=== PATIENT | male | born 1970 | race Caucasian/White ===

== ENCOUNTER 2024-12-16 19:31 | Emergency (ER) | payer OTHER, SELFPAY ==
--- NOTE | ~2024-12-16 | US_ITS ---
CLINICAL HISTORY: pain, calf TTP Left lower extremity venous duplex ultrasound Study was performed using color and spectral waveform analysis. Comparison: None Findings: Visualized deep veins are fully compressible with normal flow and augmentation. No popliteal cyst. No significant adenopathy. Impression: Left lower extremity venous duplex ultrasound negative for DVT This document has been electronically signed by: Maico Parra MD on 12/16/2024 21:21:15
--- NOTE | ~2024-12-16 | XR_ITS ---
CLINICAL HISTORY: pain, recent injury Left knee four views Comparison: None provided Findings: No acute fracture or dislocation noted. No significant joint effusion identified. No soft tissue foreign body. Impression: No acute bony abnormality This document has been electronically signed by: Maico Parra MD on 12/16/2024 21:02:14
[2024-12-16 19:57] VITALS: BP 138/87; PULSE 90; RESP 18; TEMP 36.3; O2SAT 96; BMI 32.2
--- NOTE | 2024-12-16 19:57 | ED_ITS ---
HPI - General Adult General Chief complaint: Extremity Problem Stated complaint: L leg swelling, knee pain Time Seen by Provider: 12/16/24 21:52 Source: patient Limitations: language barrier History of Present Illness ED Provider: Lidia Veloz PA-C Related Data Previous Rx's ?Medication ?Instructions ?Recorded meloxicam 15 mg tablet 15 mg PO DAILY PRN pain #7 t abs 12/16/24 Allergies Allergy/AdvReac Type Severity Reaction Status Date / Time No Known Allergies Allergy Verified 12/16/24 20:00 PMF Social History Social History Advance Directives: No Advance Directives Information Provided: No Physical Exam ED Vital Signs: Vital Signs - 24 hr 12/16/24 19:57 Temperature 97.3 F Pulse Rate 90 Respiratory Rate 18 Blood Pressure 138/87 Pulse Oximetry 96 Oxygen Delivery Method Room Air BMI result Body Mass Index 32.2 Course Course Course Narrative: This is an RME performed by Mirtha Salas CNP: Additional HPI, ROS, PE not included below will be deferred to primary provider. Patient is a 54-year-old male who presents emergency department for evaluation. For the past 2 months he has been experiencing left leg pain primarily at the knee and posterior to the knee. Over the past 2 weeks pain has extended throughout the entirety of the leg but remains most painful the knee. Reports 2 months ago he had an injury to the knee, had stepped a certain way and felt movement to the side, was seen at [facility] initially, no x-rays performed, prescribed diclofenac Exam: 2+ DP PT pulse, tenderness upon palpation. Compartments soft. Neurovascularly intact distally. Plan: Venous duplex US, XR knee Medical Decision Making Medical Decision Making [facility] Narrative: I have independently reviewed the following tests: X-ray left knee:Findings: No acute fracture or dislocation noted. No significant joint effusion identified. No soft tissue foreign body. Impression: No acute bony abnormality DVT study left lower extremity:Left lower extremity venous duplex ultrasound Study was performed using color and spectral waveform analysis. Comparison: None Findings: Visualized deep veins are fully compressible with normal flow and augmentation. No popliteal cyst. No significant adenopathy. Impression: Left lower extremity venous duplex ultrasound negative for DVT Lab Data 12/16/24 20:28 12/16/24 20:28 Labs: Lab Results 12/16/24 Range/Units 20:28 WBC 9.1 (4.8-10.8) X10*3/uL RBC 5.13 (4.60-5.80) X10*6/uL Hgb 16.5 (14.0-18.0) g/dl Hct 45.6 (42.0-52.0) % MCV 88.9 (80.0-98.0) fL MCH 32.2 (27.0-33.0) pg MCHC 36.2 H (31.0-36.0) g/dl RDW 12.2 (11.0-16.0) % Plt Count 275 (160-400) X10*3/uL MPV 9.3 L (9.4-12.4) fL Immature Gran % (Auto) 0.3 (0.0-0.4) % Neut % (Auto) 56.5 (45-73) % Lymph % (Auto) 30.5 (20-40) % Rabun % (Auto) 9.8 (2-11) % Eos % (Auto) 2.6 (0-4) % Baso % (Auto) 0.3 (0-2) % Lymph # (Auto) 2.8 (1.2-4.9) X10*3/uL Rabun # (Auto) 0.9 (0.1-1.2) X10*3/uL Eos # (Auto) 0.2 (0.0-0.4) X10*3/uL Baso # (Auto) 0.0 (0.0-0.2) X10*3/uL Abs Immat Gran (auto) 0.03 (0.00-0.03) X10*3/uL Absolute Neuts (auto) 5.1 (2.0-8.3) x10*3/uL Absolute Nucleated RBC 0.000 (0.0-0.012) X10*3/uL Nucleated RBC % (auto) 0.0 (0.0-0.2) /100WBC PT 11.3 (10.9-12.4) SEC INR 1.0 (0.9-1.1) Sodium 141 (135-145) mmol/L Potassium 3.9 (3.3-5.1) mmol/L Chloride 107 (96-108) mmol/L Carbon Dioxide 23 (22-29) mmol/L Anion Gap 15 (12-20) BUN 11 (9-16) mg/dL Creatinine 1.04 (0.5-1.4) mg/dL Estim Creat Clear Calc 90.1 Estimated GFR > 60 Random Glucose 121 H (60-115) mg/dL Calcium 8.8 (8.4-10.2) mg/dL Total Bilirubin 0.2 (0.0-1.0) mg/dL AST 36 (5-37) U/L ALT 80 H (0-40) U/L Alkaline Phosphatase 72 (39-117) U/L Total Creatine Kinase 83 (38-174) U/L Total Protein 7.2 (6.5-8.0) g/dL Albumin 4.2 (3.5-5.0) g/dL Discharge Plan Discharge Clinical Impression: Strain of left knee Patient Disposition: Home, Self-Care Instructions: Knee Sprain (ED), Crutch Instructions (ED), P.R.I.C.E. Treatment (ED) Additional Instructions: The x-ray of the left knee was negative for fracture or dislocation. The DVT study was negative for clot. You likely have a ligamentous injury, you require orthopedic consult, and a likely MRI. I am providing you with a contact, you can call tomorrow to schedule an appointment. Keep the knee immobilizer in place while ambulating, use the crutches as well. Take the meloxicam as directed as an anti-inflammatory, this will help your pain. Prescriptions: New meloxicam 15 mg tablet 15 mg PO DAILY PRN (Reason: pain) Qty: 7 0RF Referrals: Momo Lee MD [Physician, Orthopedics] Referral Note: left knee sprain, pain/reduced mobility for months Print Language: German
[2024-12-16 20:31] LABS: MANUAL DIFF FLAG NO
[2024-12-16 20:33] LABS: Hematocrit 45.6 % (42.0-52.0); Hemoglobin 16.5 g/dl (14.0-18.0); Imm Gran Abs Auto 0.03 X10*3/uL (0.00-0.03); Imm Gran Pct Auto 0.3 % (0.0-0.4); Lymphocytes Absolute Auto 2.8 X10*3/uL (1.2-4.9); Mean Corpuscular HGB Conc 36.2 g/dl (31.0-36.0); Mean Corpuscular Hemoglobin 32.2 pg (27.0-33.0); Mean Corpuscular Volume 88.9 fL (80.0-98.0); NRBC Abs Auto 0.000 X10*3/uL (0.0-0.012); NRBC Pct Auto 0.0 /100WBC (0.0-0.2); Platelet Count 275 X10*3/uL (160-400); Red Blood Count 5.13 X10*6/uL (4.60-5.80); White Blood Count 9.1 X10*3/uL (4.8-10.8)
[2024-12-16 20:40] LABS: INTERNATIONAL NORM RATIO 1.0 (0.9-1.1); Prothrombin Time 11.3 SEC (10.9-12.4)
[2024-12-16 20:48] LABS: Albumin Level 4.2 g/dL (3.5-5.0); Alkaline Phosphatase 72 U/L (39-117); Anion Gap 15 (12-20); Aspartate Amino Transferase 36 U/L (5-37); Blood Urea Nitrogen 11 mg/dL (9-16); Calcium 8.8 mg/dL (8.4-10.2); Carbon Dioxide 23 mmol/L (22-29); Chloride 107 mmol/L (96-108); Creatinine Clr Calc Pharmacy 90.1; Estimated Glomerular Filt Rate > 60; Potassium 3.9 mmol/L (3.3-5.1); Sodium 141 mmol/L (135-145); Total Protein 7.2 g/dL (6.5-8.0)
[2024-12-16 21:02] LABS: Alanine Aminotransferase 80 U/L (0-40)
--- OUTSIDE RECORDS SUMMARY | 2024-12-16 21:09 | XMS_ITS | Clinical Summary ---
Author Organization [facility] [address] [place] [address] [place] [address] Phone Care Team Providers Care Brickmason Helper Name Role Phone Abelardo Mckeon MD Primary Care Provider Allergies No known active allergies Medications diclofenac (Cataflam) 50 mg tablet Take 1 tablet (50 mg total) by mouth 2 (two) times a day for 10 days. 20 each 09/22/2024 Active Encounters Date Type Department Care Team Description 09/22/2024 2:00 PM EDT Office Visit [facility] [address] [phone] Kristine Morales NP Acute pain of left knee (Primary Dx) 09/22/2024 Telephone Adult Medicine [address] [phone] Abelardo Mckeon MD Knee Pain from Last 3 Months Social History Tobacco Use Types Packs/Day Years Used Date Smoking Tobacco: Never Assessed Sex and Gender Information Value Date Recorded Sex Assigned at Not on file Legal Sex Male 3:02 PM EST Gender Identity Not on file Sexual Orientation Not on file Last Filed Vital Signs Vital Sign Reading Time Taken Comments Blood Pressure 127/86 09/22/2024 2:04 PM EDT Pulse 88 09/22/2024 2:04 PM EDT Temperature 36.2 C (97.2 F) 09/22/2024 2:04 PM EDT Respiratory Rate - - Oxygen Saturation 97% 09/22/2024 2:04 PM EDT Inhaled Oxygen Concentration - - Weight - - Height - - Body Mass Index - - Plan of Treatment Upcoming Encounters Date Type Department Care Team (Late st Contact Info) Description 02/13/2025 9:00 AM EDT Office Visit Adult Medicine [facility] [address] [place] [phone] Abelardo Mckeon MD [address] [place] [address] Health Maintenance Due Date Last Done Comments DTaP,Tdap,and Td Vaccines (1 - Tdap) 1988 Hepatitis B Vaccines (1 of 3 - 19+ 3-dose series) 1988 Pneumococcal Vaccine: 50+ Ye ars (1 of 1 - PCV) 2019 Zoster Vaccines (1 of 2) 2019 COVID-19 Vaccine ( - 2023-2 5 season) 2024 Depression Screening 05/21/2024 Cholesterol Screening (Lipid Panel) 07/17/2024 Colorectal Cancer Screening: Colonoscopy 07/17/2024 HIV Screening 07/17/2024 Hepatitis C Screening 07/17/2024 Social Influencers of Health Screening 07/17/2024 Influenza Vaccine (#1) 2025 HIB Vaccines Aged Out No longer eligi ble based on patient's age to complete this topic HPV Vaccines Aged Out No longer eligi ble based on patient's age to complete this topic Hepatitis A Vaccines Aged Out No long er eligible based on patient's age to complete this topic IPV Vaccines Aged Out No longer eligi ble based on patient's age to complete this topic MMR Vaccines Aged Out No longer eligi ble based on patient's age to complete this topic Meningococcal ACWY Vaccine Aged Out N o longer eligible based on patient's age to complete this topic Meningococcal B Vaccine Aged Out No l onger eligible based on patient's age to complete this topic RSV Immunization Patients Un vinicio 20 months Aged Out No longer eligible b ased on patient's age to complete this topic Varicella Vaccines Aged Out No longer eligible based on patient's age to complete this topic Insurance [facility] [employer] Care Teams Brickmason Helper Relationship Specialty Start Date End Date Abelardo Mckeon MD [address] [place] [address] PCP - General Internal Medicine 07/17/24
[2024-12-16 23:08] VITALS: BP 138/87; PULSE 90; RESP 18; TEMP 36.3; O2SAT 96
== END 2024-12-16 23:08 | disposition home or self-care (01) ==
PROVIDERS: Nurse Practitioner Family; Emergency Provider Emergency Medicine; PCP Internal Medicine
DX: S86.912A Strain of unspecified muscle(s) and tendon(s) at lower leg level, left leg, initial encounter (principal); X50.1XXA Overexertion from prolonged static or awkward postures, initial encounter; M25.462 Effusion, left knee; M79.605 Pain in left leg; Y93.9 Activity, unspecified; Y92.9 Unspecified place or not applicable; Y99.9 Unspecified external cause status
CPT/HCPCS: 36415; 73564; 80053; 82550; 85025; 85610; 93971; 99282; 99284

== ENCOUNTER → 2024-12-16 20:04 | Outpatient (BNV) | payer OTHER, SELFPAY | PROVIDERS: Emergency Provider Emergency Medicine; PCP Internal Medicine; Visit Provider Radiology Diagnostic Radiology | DX: R22.42 Localized swelling, mass and lump, left lower limb (principal); M25.562 Pain in left knee | CPT/HCPCS: 73564; 93971 ==

== ENCOUNTER 2025-02-17 09:01 | Outpatient (REF) | payer OTHER, SELFPAY ==
--- OUTSIDE RECORDS SUMMARY | 2025-02-13 09:00 | XMS_ITS | Encounter Summary ---
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 Name Role Phone Abelardo Mckeon MD Primary Care Provider Reason for Visit * Reason Comments Abdominal Pain Encounter Details Date Type Department Care Team (Late st Contact Info) Description 02/13/2025 9:00 AM EDT Office Visit Adult Medicine [facility] [address] [place] [address] Abelardo Mckeon MD [address] [place], [place] Adult general medical examination (Primary Dx); Mild intermittent asthma without complication; Acute pain of left knee; Screening for lipid disorders; Encounter for screening for HIV; Screening for diabetes mellitus (DM); Need for hepatitis C screening test; Need for hepatitis B screening test; Encounter for screening for malignant neoplasm of colon; Snoring; Class 1 obesity due to excess calories with serious comorbidity and body mass index (BMI) of 32.0 to 32.9 in adult; Screening for prostate cancer; Elevated blood pressure reading; Transaminitis; Need for vaccination against Streptococcus pneumoniae; Need for prophylactic vaccination and inoculation against influenza; Need for tetanus, diphtheria, and acellular pertussis (Tdap) vaccine Social History Tobacco Use Types Packs/Day Years Used Date Smoking Tobacco: Never Passive Smoke Exposure: Never Smokeless Tobacco: Never Tobacco Cessation:Counseling Given: Not Answered Alcohol Use Standard Drinks/Week Comments Not Currently 0 (1 standard drink = 0.6 oz pur e alcohol) Housing Instability Answer Date Recorde d Are you worried that in the next 2 months you may not have stable housing? No 02/13/2025 Food Access & Nutrition Answer Date Rec orded Do you have access to a vari ety of food including fruits and vegetables? Yes 02/13/2025 Access to Healthcare Answer Date Record ed Within the last 3 months, ho w many times did you visit the emergency department for your medical care? 0 02/13/2025 Health Literacy Answer Date Recorded How often do you need to hav e someone help you when you read instructions, pamphlets, or other written material from your doctor or pharmacy? Never 02/13/2025 Caregiver: How often do you need to have someone help you when you read instructions, pamphlets, or other written material from your doctor or pharmacy? Not on file 02/13/2025 Financial Risk Answer Date Recorded How hard is it for you to pa y for the very basics like food, housing, medical care, and air conditioning / heating? Not very hard 02/13/2025 Transportation Answer Date Recorded Has the lack of transportati on kept you from meetings, work, or from getting things needed for daily living? No Has the lack of transportati on kept you from medical appointments or from getting medications? No 02/13/2025 Social Isolation Answer Date Recorded How often do you feel lonely or isolated from th ose around you? Never 02/13/2025 Food Risk Answer Date Recorded Within the past 12 months we worried whether our food would run out before we got money to buy more. Never true 02/13/2025 Within the past 12 months th e food we bought just didn't last and we didn't have money to get more. Never true 02/13/2025 Dependent Care Answer Date Recorded Do you need help finding or paying for care for your loved ones. For example, child care cook or elderly care for an older adult? No 02/13/2025 Education Answer Date Recorded Do you think completing more education or training, like finishing a GED, going to college, or learning a trade, would be helpful for you? No 02/13/2025 Employment and Income Answer Date Recor ded During the last four weeks, have you been actively looking for work? No 02/13/2025 Living Situation Answer Date Recorded What is your living situation? Unrecognized valu e 02/13/2025 Sex and Gender Information Value Date Recorded Sex Assigned at Not on file Legal Sex Male 3:02 PM EST Gender Identity Not on file Sexual Orientation Not on file documented as of this encounter Last Filed Vital Signs Vital Sign Reading Time Taken Comments Blood Pressure 153/97 02/13/2025 8:38 AM EDT Pulse 77 02/13/2025 8:33 AM EDT Temperature 36.7 C (98 F) 02/13/2025 8:33 AM EDT Respiratory Rate 15 02/13/2025 8:33 AM EDT Oxygen Saturation 97% 02/13/2025 8:33 AM EDT Inhaled Oxygen Concentration - - Weight 95.7 kg (211 lb) 02/13/2025 8:33 AM EDT Height 172.7 cm (5' 8 ) 02/13/2025 8:33 AM EDT Body Mass Index 32.08 02/13/2025 8:33 AM EDT documented in this encounter Patient Instructions * Attachments The following attachments cannot be sent through Care Everywhere. * Recombinant Zoster Vaccine: VIS (Tanzanian) documented in this encounter Progress Notes * Sharon Sprague MA - 02/13/2025 9:00 AM EDT Depression Screening Will the patient answer the depression risk questions?: Yes Over the last 2 weeks, how often have you been bothered by little interest or pleasure in doing things?: Not at all Over the last 2 weeks, how often have you been bothered by feeling down, depressed, or hopeless?: Not at all Depression Risk: 0 Social Influencers of Health Who provided answers?: Self Within the past 12 months we worried whether our food would run out before we got money to buy more.: Never true Within the past 12 months the food we bought just didn't last and we didn't have money to get more.: Never true How hard is it for you to pay for the very basics like food, housing, medical care, and air conditioning / heating?: Not very hard Are you worried that in the next 2 months you may not have stable housing?: No Do you have access to a variety of food including fruits and vegetables?: Yes Within the last 3 months, how many times did you visit the emergency department for your medical care?: 0 Has the lack of transportation kept you from meetings, work, or from getting things needed for daily living?: No Has the lack of transportation kept you from medical appointments or from getting medications?: No How often do you feel lonely or isolated from those around you?: Never How often do you need to have someone help you when you read instructions, pamphlets, or other written material from your doctor or pharmacy?: Never Visit Vitals BP (!) 164/97 Pulse 77 Temp 36.7 ??C (98 ??F) (Temporal) Resp 15 Ht 1.727 m (68 ) Wt 95.7 kg (211 lb) SpO2 97% BMI 32.08 kg/m?? Smoking Status Never BSA 2.09 m?? BP recheck: 153/97 Staff Review: Pneumococcal vaccine has been ordered. The following was reviewed: Immunization verified as PCV20 in Manager Order: yes Immunization tab reviewed: If previous immunization of Pneumococcal vaccine noted in Immunization tab, order and time interval confirmed with provider: yes Female patient under 55 years old: Last LMP confirmed. If - may be able to receive immunization- check with provider Confirmed that patient is not receiving Shingrix on same day or within 28 days of the PPSV23: yes Patient: The following questions were reviewed with the patient: The patient acknowledges that they will be receiving the pneumococcal vaccine: yes Denies allergy or reaction to previous Pneumococcal vaccine or Diptheria toxoid: yes Acknowledges reviewing the VIS for PPSV23, for PCV13, or for PCV20 (copy made available): yes Denies moderate or severe illness or fever of >100 degrees F: yes Patient agrees to wait in the office for 20 minutes after receiving the injection: yes Pneumococcal vaccine administered: PCV20. See Imm/Inj tab Electronically signed by: Sharon Sprague MA 02/13/2025 9:25 AM EDT The patient acknowledges that they will be receiving the Tdap (Brand Name Boostrix or Adacel) (Tetanus/Diptheria/Pertussis) vaccine: yes Immunization tab reviewed: It has been at least 9 years since last Tdap vaccine administration. If less than 9 years, provider notified. yes Exception: patients should receive a Tdap with each , preferably during the 3rd trimester. Denies allergy or reaction to previous Tetanus, Diptheria or pertussis vaccination: yes Denies history of Guillain [place] Syndrome.or any type of seizure disorder. yes Patient made aware that they may experience pain/swelling at the site after receiving a Tetanus or Diptheria vaccine. yes Acknowledges reviewing the VIS for Tdap vaccine (copy made available): yes Denies moderate or severe illness or fever of >100 degrees F: yes Patient agrees to wait in the office for 20 minutes after receiving the injection: { yes Tdap vaccine administered IM. See Imm/Inj tab Electronically signed by: Sharon Sprague MA 02/13/2025 9:25 AM EDT INFLUENZA VACCINE The patient acknowledges that they will be receiving the Influenza (Flu) vaccine today: yes Flu vaccine formulation is: Flucelvax (preservative free): Patient denies allergy to previous flu vaccine. yes Immunization tab reviewed: Patient acknowledges they have NOT received a flu vaccine for the 2024. yes Denies history of Guillain-[place] Syndrome (severe muscle weakness). yes Acknowledges reviewing the VIS Seasonal Flu (copy made available). yes Patient Denies moderate or severe illness or fever of >100 degrees F. yes Agrees to wait in the office/car for 20 minutes after receiving the influenza injection. yes No restriction for Influenza vaccine administered IM See Imm/Inj tab. Electronically signed by: Sharon Sprague MA 02/13/2025 9:25 AM EDT * Abelardo Mckeon MD - 02/13/2025 9:00 AM EDT CHIEF COMPLAINT: Abdominal Pain IDENTIFIER: Oj Hernandes is a 54 y.o. old male. HPI: Patient presents today for annual physical exam. He is a new patient to our practice. He had a fall on his left knee a few weeks ago. Went to [facility] and then is currently scheduled to see [facility]. X-ray was unremarkable. Labs in the ER showed mild transaminitis with ALTof 81. Does not drink alcohol. Otherwise labs were normal. he reports being asthmatic but has not used any inhaler for the past 3 years. ROS: GENERAL: Negative for malaise, significant weight loss and fever HEENT: No changes in hearing or vision. No nosebleeds or other nasal problems NECK: Negative for lumps, goiter, pain, and significant neck swelling RESPIRATORY: No cough, wheezing or shortness of breath CARDIOVASCULAR: Negative for chest pain, leg swelling and palpitations BREAST: No lumps, discharge, pain or change in skin GI: Negative for abdominal discomfort, changes in bowel habits, blood in stool or black stools : Negative for dysuria, frequency, and incontinence MUSCULOSKELETAL: See HPI SKIN: No lesions, rash, or itching PSYCH: No sleep disturbances, depression or major stressors HEMATOLOGY/LYMPHOLOGY: No prolonged bleeding, easy bruising, or swollen lymph nodes ENDOCRINE: Negative for cold or heat intolerance, polyuria, polydipsia and goiter NEURO: No persistent headache, fainting, seizures, strokes, TIAs, weakness, numbness or tingling The remainder of review of systems is noncontributory. PAST MEDICAL HISTORY: Patient Active Problem List Diagnosis Date Noted Mild intermittent asthma without complication 02/13/2025 Class 1 obesity due to excess calories with serious comorbidity and body mass index (BMI) of 32.0 to 32.9 in adult 02/13/2025 SOCIAL HISTORY: Social History Tobacco Use Smoking status: Never Passive exposure: Never Smokeless tobacco: Never Substance Use Topics Alcohol use: Not Currently FAMILY HISTORY: Family Status Relation Name Status Mother (Not Specified) Father (Not Specified) No partnership data on file Family History Problem Relation Name Age of Onset No Known Problems Mother No Known Problems Father ACTIVE MEDICATIONS: Outpatient Medications Marked as Taking for the 02/13/25 encounter (Office Visit) with Abelardo Mckeon MD Medication Sig Dispense Refill meloxicam (MOBIC) 15 mg tablet Take 1 tablet (15 mg total) by mouth 1 (one) time each day if needed. ALLERGIES: Patient has no known allergies. PHYSICAL EXAM: Blood pressure (!) 153/97, pulse 77, temperature 36.7 ??C (98 ??F), temperature source Temporal, resp. rate 15, height 1.727 m (68 ), weight 95.7 kg (211 lb), SpO2 97%. Body mass index is 32.08 kg/m??. BMI is greater than 25.0 (above the normal range) - see Plan APPEARANCE: Alert and in no acute distress EYES: PERRLA, conjunctiva and sclera normal EARS: External ears normal. Canals clear. TMs normal. NOSE/SINUS: Nares normal. Septum midline. Mucosa normal. No drainage or sinus tenderness MOUTH/THROAT: no erythema, lesions, or exudates NECK: Neck supple, no adenopathy, thyroid symmetric and of normal size HEART: RRR with normal S1 and S2, no murmurs, no gallops, no JVD appreciated CHEST: non-tender LUNG: clear to auscultation bilaterally ABDOMEN: Bowel sounds normoactive, no bruits and soft, non-tender, without organomegaly or palpablemasses BACK: no pain to palpation and good flexion and extension EXTREMITIES: Extremities warm and well perfused without clubbing, cyanosis, or edema NEURO: Awake, alert and oriented x 3 and reflexes symmetrical SKIN: Skin color, texture, turgor normal. No rashes or lesions. IMPRESSION: 1. Adult general medical examination 2. Mild intermittent asthma without complication 3. Acute pain of left knee 4. Screening for lipid disorders 5. Encounter for screening for HIV 6. Screening for diabetes mellitus (DM) 7. Need for hepatitis C screening test 8. Need for hepatitis B screening test 9. Encounter for screening for malignant neoplasm of colon 10. Snoring 11. Class 1 obesity due to excess calories with serious comorbidity and body mass index (BMI) of 32.0 to 32.9 in adult 12. Screening for prostate cancer 13. Elevated blood pressure reading 14. Transaminitis 15. Need for vaccination against Streptococcus pneumoniae 16. Need for prophylactic vaccination and inoculation against influenza 17. Need for tetanus, diphtheria, and acellular pertussis (Tdap) vaccine PLAN: 1. Health maintenance: The patient presented for an evaluation of general health. As part of this visit, we reviewed the following issues, which are considered an essential part of preventative health in this age group: - Prostate cancer screening with digital rectal exam and PSA testing - ordered - Colon cancer screening (colonoscopy every 10 years/annual FOBT plus flexi sigmoidoscopy every 5 years/double-contrast BE every 5 years/Cologuard every 3 years/Annual FOBT) - patient had a colonoscopy roughly 6 years ago at a hospital in [place]. He does not have the report with him. He says [facility] We fax request to that hospital to get his colonoscopy record - Testicular cancer screening, which includes self-exam teaching - Blood pressure screening yearly - Cholesterol screening every five years - ordered - Counseling of injury prevention including fire prevention, smoke alarms and seat belt usage - Screening for depression - over the past TWO WEEKS, been bothered by little INTEREST or PLEASURE in doing things or by feeling DOWN, DEPRESSED, or HOPELESS? No - Screening for Type 2 diabetes mellitus in those with hypertension and/or hyperlipidemia - Prevention of and/or testing for infectious diseases, which may include Chlamydia, Gonorrhea, Syphilis, HIV, Hepatitis C and Tuberculosis - advice about STD prevention provided - One time hepatitis C screening in all adults - Education about skin cancer - Recommendations about immunizations - patient influenza, Prevnar 20, Tdap given in office today. Will discuss shingles vaccine at the next visit. - Recommendation of an eye exam for glaucoma every 2-4 years in this age range - patient will self-refer - Screening for substance abuse (including tobacco, alcohol, and recreational drugs) - see Substance & Sexuality section of medical record - Genetic cancer risk screening - NO INDICATION: Hereditary Cancer Syndrome Risk Assessment completed and evaluated. No indication found for genetic testing at this time. - In addition to reviewing these issues, I have reviewed the following sections of the chart: Past Medical History, Social History, and Social History - Did you have a dental visit in the last 12 months? Yes - Did you have a dental problem in the last 6 months? No Obtain repeat labs Including liver function. Most likely has nonalcoholic fatty liver disease. Elevated blood pressure noted. Was slightly elevated in the hospital as well. Follow back in 4 weeks forblood pressure recheck. Orders Placed This Encounter Procedures Pneumococcal conjugate 20 valent (Prevnar 20, PCV 20) 2mo and older Influenza trivalent, MDCK, 0.5mL, preservative free (Flucelvax) 6mo and older Tdap Tetanus diptheria acellular pertussis (Boostrix; Adacel) 7yo and older CBC and differential Standing Status: Future Standing Expiration Date: 02/13/2026 Comprehensive metabolic panel Standing Status: Future Standing Expiration Date: 02/13/2026 Hemoglobin A1c Standing Status: Future Standing Expiration Date: 02/13/2026 Lipid panel with reflex to direct LDL Standing Status: Future Standing Expiration Date: 02/13/2026 HIV 1,2 antibody, p24 antigen with reflex to differentiation Standing Status: Future Standing Expiration Date: 02/13/2026 Order Specific Question: Is this test being used for Screening (absence of signs and/or symptoms) OR Diagnostic (signs/symptoms are present) purposes? Answer: Screen Order Specific Question: Patient had opportunity to ask questions, and consented to testing, if required by state law? Answer: Yes Order Specific Question: Release to patient Answer: Immediate [1] Hepatitis C antibody Standing Status: Future Standing Expiration Date: 02/13/2026 Order Specific Question: Is this test being used for Screening (absence of signs and/or symptoms) OR Diagnostic (signs/symptoms are present) purposes? Answer: Screen Order Specific Question: Release to patient Answer: Immediate [1] Hepatitis B surface antibody Standing Status: Future Standing Expiration Date: 02/13/2026 Order Specific Question: Release to patient Answer: Immediate [1] Prostate specific antigen screen Standing Status: Future Standing Expiration Date: 02/13/2026 Order Specific Question: Release to patient Answer: Immediate [1] Abelardo Mckeon MD on 02/13/2025 at 9:44 AM EDT documented in this encounter Plan of Treatment Upcoming Encounters Date Type Department Care Team (Late st Contact Info) Description 03/30/2025 11:00 AM EST Office Visit Adult Medicine [facility] [address] [place], [place] [phone] Stella Will PA [address] [place], [place] documented as of this encounter Results * Prostate specific antigen screen (02/16/2025 8:04 AM EDT) PSA 0.51 0.00 - 4.00 ng/mL LAB CHEMISTRY METHOD 02/16/2025 11:22 AM EDT [facility] Blood Venous blood specimen / Unknown Venipuncture / Unknown 02/16/2025 8:04 AM EDT 02/16/2025 8:04 AM EDT Narrative [facility] - 02/16/2025 11:22 AM EDT The Siemens Advia Centaur Chemiluminescent Immunoassay is used. Results obtained with different assay methods or kits cannot be used interchangeably. Results cannot be interpreted as absolute evidence of the presence or absence of malignant disease. us Abelardo Mckeon MD LAB BLOOD ORDERABLES F inal Result Performing Organization Address [facility] Co de Phone Number [facility] [address] [place] [address], [place] [phone] * Hepatitis B surface antibody (02/16/2025 8:04 AM EDT) Hepatitis B Surface Ab Negative Negative LAB CHEMISTRY METHOD 02/16/2025 11:23 AM EDT [facility] Hepatitis B Surface Ab Quantitative <3.1 mIU/mL LAB CHEMISTRY METHOD 02/16/2025 11:23 AM EDT [facility] Blood Venous blood specimen / Unknown Venipuncture / Unknown 02/16/2025 8:04 AM EDT 02/16/2025 8:04 AM EDT Narrative [facility] - 02/16/2025 11:23 AM EDT >=10 mIU/mL is considered to be consistent with immunity. us Abelardo Mckeon MD LAB BLOOD ORDERABLES F inal Result Performing Organization Address [facility] de Phone Number [facility] [address] [place] [address], [place] [phone] * Hepatitis C antibody (02/16/2025 8:04 AM EDT) Hepatitis C Antibody Negative Negative LAB CHEMISTRY METHOD 02/16/2025 12:02 PM EDT [facility] Blood Venous blood specimen / Unknown Venipuncture / Unknown 02/16/2025 8:04 AM EDT 02/16/2025 8:04 AM EDT us Abelardo Mckeon MD LAB BLOOD ORDERABLES F inal Result Performing Organization Address City/[facility]/ZIP Co de Phone Number [facility] [address] [place] [address], [place] [phone] * HIV 1,2 antibody, p24 antigen with reflex to differentiation (02/16/2025 8:04 AM EDT) [facility] HIV Combo AB/AG Negative Negative LAB CHEMISTRY METHOD 02/16/2025 12:02 PM EDT [facility] Blood Venous blood specimen / Unknown Venipuncture / Unknown 02/16/2025 8:04 AM EDT 02/16/2025 8:04 AM EDT Narrative [facility] - 02/16/2025 12:02 PM EDT This assay is a 4th generation assay allowing for earlier detection of HIV infection by detecting the presence of the HIV-1 p24 antigen as well as the traditional antibodies to HIV type 1 (including group O) and type 2. Use of a 4th generation assay is the current CDC recommendation for HIV screening. Abelardo Mckeon MD LAB BLOOD ORDERABLES F inal Result Performing Organization Address City/[facility]/ZIP Co de Phone Number [facility] [address] [place] [address], [place] [phone] * (ABNORMAL) Lipid panel with reflex to direct LDL (02/16/2025 8:04 AM EDT) [facility] Cholesterol 171 0 - 200 mg/dL LAB CHEMISTRY METHOD 02/16/2025 10:43 AM EDT [facility] Triglycerides 90 0 - 150 mg/dL LAB CHEMISTRY METHOD 02/16/2025 10:43 AM EDT [facility] HDL 48 >=40 mg/dL LAB CHEMISTRY METHOD 02/16/2025 10:43 AM EDT [facility] LDL Calculated 105(H) 0 - 100 mg/dL LAB CHEMISTRY METHOD 02/16/2025 10:43 AM EDT [facility] Comment:Estimated LDL Calcul ated using equation: Total cholesterol - HDL cholesterol - (Triglycerides/5) VLDL Cholesterol Óscar 18 mg/dL LAB CHEMISTRY METHOD 02/16/2025 10:43 AM EDT [facility] Non HDL Chol. (LDL+VLDL) 123 <145 mg/dL LAB CHEMISTRY METHOD 02/16/2025 10:43 AM EDT [facility] Chol/HDL Ratio 3.6 0.0 - 4.4 LAB CHEMISTRY METHOD 02/16/2025 10:43 AM EDT [facility] Blood Venous blood specimen / Unknown Venipuncture / Unknown 02/16/2025 8:04 AM EDT 02/16/2025 8:04 AM EDT us Abelardo Mckeon MD LAB BLOOD ORDERABLES F inal Result Performing Organization Address City/[facility]/ZIP Co de Phone Number [facility] [address] [place] [address], [place] [phone] * Hemoglobin A1c (02/16/2025 8:04 AM EDT) Hemoglobin A1C 5.4 <6.5 % LAB CHEMISTRY METHOD 02/16/2025 2:12 PM EDT [facility] Mean Bld Glu Estim. 108 mg/dL LAB CHEMISTRY METHOD 02/16/2025 2:12 PM EDT [facility] Blood Venous blood specimen / Unknown Venipuncture / Unknown 02/16/2025 8:04 AM EDT 02/16/2025 8:04 AM EDT us Abelardo Mckeon MD LAB BLOOD ORDERABLES F inal Result [facility] [address] [place] [address], [place] [phone] * (ABNORMAL) Comprehensive metabolic panel (02/16/2025 8:04 AM EDT) Sodium 137 133 - 145 mmol/L LAB CHEMISTRY METHOD 02/16/2025 10:43 AM [facility] Potassium 4.3 3.5 - 5.5 mmol/L LAB CHEMISTRY METHOD 02/16/2025 10:43 AM [facility] Chloride 105 96 - 110 mmol/L LAB CHEMISTRY METHOD 02/16/2025 10:43 AM [facility] CO2 26 21 - 32 mmol/L LAB CHEMISTRY METHOD 02/16/2025 10:43 AM [facility] Anion Gap 6 3 - 11 LAB CHEMISTRY METHOD 02/16/2025 10:43 AM [facility] Glucose 96 70 - 100 mg/dL LAB CHEMISTRY METHOD 02/16/2025 10:43 AM [facility] BUN 16 5 - 25 mg/dL LAB CHEMISTRY METHOD 02/16/2025 10:43 AM [facility] Creatinine 0.92 0.70 - 1.30 mg/dL LAB CHEMISTRY METHOD 02/16/2025 10:43 AM [facility] eGFR 98 >=60 mL/min/1. 73m2 LAB CHEMISTRY METHOD 02/16/2025 10:43 AM [facility] Comment:Calculation based on the Chronic Kidney Disease Epidemiology Collaboration (CKD-EPI) equation refit without adjustment for race. BUN/Creatinine Ratio 17.4 LAB CHEMISTRY METHOD 02/16/2025 10:43 AM [facility] Calcium 9.1 8.5 - 10.5 mg/dL LAB CHEMISTRY METHOD 02/16/2025 10:43 AM [facility] AST (SGOT) 28 10 - 42 unit/L LAB CHEMISTRY METHOD 02/16/2025 10:43 AM [facility] ALT (SGPT) 79(H) 10 - 60 unit/L LAB CHEMISTRY METHOD 02/16/2025 10:43 AM EDT [facility] Alkaline Phosphatase 73 42 - 121 unit/L LAB CHEMISTRY METHOD 02/16/2025 10:43 AM EDT [facility] Total Protein 7.1 6.0 - 8.0 g/dL LAB CHEMISTRY METHOD 02/16/2025 10:43 AM T [facility] Albumin 3.7 3.2 - 5.0 g/dL LAB CHEMISTRY METHOD 02/16/2025 10:43 AM EDT [facility] Total Bilirubin 0.4 0.0 - 1.4 mg/dL LAB CHEMISTRY METHOD 02/16/2025 10:43 AM T [facility] Blood Venous blood specimen / Unknown Venipuncture / Unknown 02/16/2025 8:04 AM EDT 02/16/2025 8:04 AM EDT us Abelardo Mckeon MD LAB BLOOD ORDERABLES F inal Result [facility] [address] [place] [address], documented in this encounter Visit Diagnoses Diagnosis Adult general medical examination- Primary Unspecified general medical examination Mild intermittent asthma without complication Acute pain of left knee Screening for lipid disorders Encounter for screening for HIV Screening for diabetes mellitus (DM) Screening for diabetes mellitus Need for hepatitis C screening test Special screening examination for other specified viral diseases Need for hepatitis B screening test Encounter for screening for malignant neoplasm of colon Snoring Other dyspnea and respiratory abnormality Class 1 obesity due to excess calories with serious comorbidity and body mass index (BMI) of 32.0 to 32.9 in adult Screening for prostate cancer Special screening for malignant neoplasm of prostate Elevated blood pressure reading Elevated blood pressure reading without diagnosis of hypertension Transaminitis Nonspecific elevation of levels of transaminase or lactic acid dehydrogenase (LDH) Need for vaccination against Streptococcus pneumoniae Need for prophylactic vaccination and inoculation against influenza Need for tetanus, diphtheria, and acellular pertussis (Tdap) vaccine documented in this encounter Discontinued Medications Medication Sig Discontinue Reason Start Date End Da te diclofenac (Cataflam) 50 mg tablet Take 1 tablet (50 mg total) by mouth 2 (two) times a day for 10 days. 09/22/2024 02/13/2025 documented as of this encounter Historical Medications * This list may reflect changes made after this encounter. meloxicam (MOBIC) 15 mg tablet Take 1 tablet (15 mg total) by mouth 1 (one) time each day if needed. 12/17/2024 added in this encounter Orders Immunization/Injection Count Last Ordered Date First Ordered Date INFLUENZA TRIVALENT, MDCK, 0 .5ML, PRESERVATIVE FREE (FLUCELVAX) 6MO AND OLDER 1 02/13/2025 PNEUMOCOCCAL CONJUGATE 20 VA LENT (PREVNAR 20, PCV 20) 2MO AND OLDER 1 02/13/2025 TDAP TETANUS DIPTHERIA ACELL ULAR PERTUSSIS (BOOSTRIX; ADACEL) 7YO AND OLDER 1 02/13/2025 documented in this encounter Additional Health Concerns Assessment Noted Time PHQ-9 Depression Total Score: 0 02/14/20 25 8:33 AM EDT documented as of this encounter Care Teams Hobbing Machine Operator Relationship Specialty Start Date End Date Abelardo Mckeon MD [address] [place] [address] PCP - General Internal Medicine 07/17/24 documented as of this encounter
--- OUTSIDE RECORDS SUMMARY | 2025-02-18 09:41 | XMS_ITS | Clinical Summary ---
Author Organization [facility] [address] [place] [address] [place] [address] Phone Care Team Providers Care School Bus Driver/Teacher Assistant Name Role Phone Abelardo Mckeon MD Primary Care Provider Allergies No known active allergies Medications meloxicam (MOBIC) 15 mg tablet Take 1 tablet (15 mg total) by mouth 1 (one) time each day if needed. 5 Active diclofenac (Cataflam) 50 mg tablet Take 1 tablet (50 mg total) by mouth 2 (two) times a day for 10 days. 20 each 5 02/14/20 25 Discontinu ed( ) Active Problems Problem Noted Date Diagnosed Date Mild intermittent asthma without complication Class 1 obesity due to exces s calories with serious comorbidity and body mass index (BMI) of 32.0 to 32.9 in adult 02/13/2025 Encounters Date Type Department Care Team Description 02/16/2025 Results Follow-Up Adult Medicine [address] [phone] Abelardo Mckeon MD 02/13/2025 9:00 AM EDT Office Visit Adult Medicine [address] [phone] Abelardo Mckeon MD Adult general medical examination (Primary Dx); Mild [...] tetanus, diphtheria, and acellular pertussis (Tdap) vaccine from Last 3 Months Immunizations Immunization Administration Dates Next Due Influenza trivalent, MDCK, 0 .5mL, preservative free (Flucelvax) 6mo and older 02/13/2025 Pneumococcal conjugate 20 va lent (Prevnar 20, PCV 20) 2mo and older 02/13/2025 Tdap Tetanus diptheria acell ular pertussis (Boostrix; Adacel) 7yo and older 02/13/2025 Surgical History Surgery Date Site/Laterality Comments NO PAST SURGERIES Medical History Medical History Date Comments Asthma Family History Medical History Relation Name Comments No Known Problems Father No Known Problems Mother Relation Name Status Comments Father Mother Social History Tobacco Use Types Packs/Day Years [...] care for your loved ones. For example, director child abuse therapy or elderly care for an older adult? [...] on file Sexual Orientation Not on file Obstetrics History Last Filed Vital Signs Vital Sign Reading [...] Mass Index 32.08 02/13/2025 8:33 AM EDT Plan of Treatment Upcoming Encounters Date Type Department Care Team (Late st Contact Info) Description 03/30/2025 11:00 AM EST Office Visit Adult Medicine [facility] [address] [place], [place] [phone] Stella Will PA [address] [place], [place] Health Maintenance Due Date Last Done Comments Colorectal Cancer Screening: Colonoscopy 1969 Hepatitis B Vaccines (1 of 3 - 19+ 3-dose series) 1988 Zoster Vaccines (1 of 2) 2019 COVID-19 Vaccine (2023-2 5 season) 2025 Social Influencers of Health Screening 02/13/2026 02/13/2025 Cholesterol Screening (Lipid Panel) 02/16/2030 02/16/2025 DTaP,Tdap,and Td Vaccines (2 - Td or Tdap) 02/13/2035 02/13/2025 RSV Immunization Adult Patie nts (1 - 1-dose 75+ series) 2044 Depression Screening Completed 02/13/2025 Influenza Vaccine Completed 02/13/2025 Pneumococcal Vaccine: 50+ Years Completed HIV Screening Completed 02/16/2025 Hepatitis C Screening Completed 02/16/2025 HIB Vaccines Aged Out No longer eligi [...] on patient's age to complete this topic Procedures Procedure Name Priority Date/Time Associated Diagnosis Comments CBC WITH AUTO DIFFERENTIAL Routine 02/16/2025 8:04 AM EDT Acute pain of left knee CBC AND DIFFERENTIAL Routine 02/16/2025 8:04 AM EDT Acute pain of left knee COMPREHENSIVE METABOLIC PANEL Routine 02/16/2025 8:04 AM EDT Acute pain of left knee HEMOGLOBIN A1C Routine 02/16/2025 8:04 AM EDT Screening for diabetes mellitus (DM) LIPID PANEL WITH REFLEX TO DIRECT LDL Routine 02/16/2025 8:04 AM EDT Screening for lipid disorders HIV 1, 2 ANTIBODY, P24 ANTIGEN WITH REFLEX TO DIFFERENTIATION Routine 02/16/2025 8:04 AM EDT Encounter for screening for HIV HEPATITIS C ANTIBODY Routine 02/16/2025 8:04 AM EDT Need for hepatitis C screening test HEPATITIS B SURFACE ANTIBODY Routine 02/16/2025 8:04 AM EDT Need for hepatitis B screening test PROSTATE SPECIFIC ANTIGEN SCREEN Routine 02/16/2025 8:04 AM EDT Screening for prostate cancer EXTERNAL VASCULAR ULTRASOUND 12/16/2024 EXTERNAL VASCULAR ULTRASOUND 12/16/2024 from Last 3 Months Results * Prostate specific antigen screen (02/16/2025 8:04 AM EDT) PSA 0.51 0.00 - 4.00 ng/mL LAB CHEMISTRY METHOD 02/16/2025 11:22 AM EDT [facility] Blood Venous blood specimen / Unknown Venipuncture / Unknown 02/16/2025 8:04 AM EDT 02/16/2025 8:04 AM EDT Narrative [facility] - 02/16/2025 11:22 AM EDT The Siemens Advia Centaur Chemiluminescent Immunoassay is used. Results obtained with different assay methods or kits cannot be used interchangeably. Results cannot be interpreted as absolute evidence of the presence or absence of malignant disease. us Abelardo Mckeon MD LAB BLOOD ORDERABLES F inal Result Performing Organization Address City/[facility]/ZIP Co de Phone Number [facility] [address] [place] [address], [place] [phone] * Hepatitis C antibody (02/16/2025 8:04 AM EDT) Hepatitis C Antibody Negative Negative LAB CHEMISTRY METHOD 02/16/2025 12:02 PM EDT [facility] Blood Venous blood specimen / Unknown Venipuncture / Unknown 02/16/2025 8:04 AM EDT 02/16/2025 8:04 AM EDT Abelardo Mckeon MD LAB BLOOD ORDERABLES F inal Result Performing Organization Address City/[facility]/ZIP Co de Phone Number [facility] [address] [place] [address], [place] [phone] * HIV 1,2 antibody, p24 antigen with reflex to differentiation (02/16/2025 8:04 AM EDT) [facility] HIV Combo AB/AG Negative Negative LAB CHEMISTRY METHOD 02/16/2025 12:02 PM EDT [facility] Blood Venous blood specimen / Unknown Venipuncture / Unknown 02/16/2025 8:04 AM EDT 02/16/2025 8:04 AM EDT Narrative [facility] - 02/16/2025 12:02 PM EDT This [...] ORDERABLES F inal Result Performing Organization Address City/[facility]/ZIP Co de Phone Number [facility] [address] [place] [address], [place] [phone] * (ABNORMAL) Lipid panel with reflex to direct LDL (02/16/2025 8:04 AM EDT) Cholesterol 171 0 - 200 mg/dL LAB CHEMISTRY METHOD 02/16/2025 10:43 AM EDT [facility] Triglycerides 90 0 - 150 mg/dL LAB CHEMISTRY METHOD 02/16/2025 10:43 AM EDT [facility] HDL 48 >=40 mg/dL LAB CHEMISTRY METHOD 02/16/2025 10:43 AM [facility] LDL Calculated 105(H) 0 - 100 mg/dL LAB CHEMISTRY METHOD 02/16/2025 10:43 AM EDT [facility] Comment:Estimated LDL Calcul ated using equation: Total cholesterol - HDL cholesterol - (Triglycerides/5) VLDL Cholesterol Óscar 18 mg/dL LAB CHEMISTRY METHOD 02/16/2025 10:43 AM EDT [facility] Non HDL Chol. (LDL+VLDL) 123 <145 mg/dL LAB CHEMISTRY METHOD 02/16/2025 10:43 AM [facility] Chol/HDL Ratio 3.6 0.0 - 4.4 LAB CHEMISTRY METHOD 02/16/2025 10:43 AM T [facility] Blood Venous blood specimen / Unknown Venipuncture / Unknown 02/16/2025 8:04 AM EDT 02/16/2025 8:04 AM EDT us Abelardo Mckeon MD LAB BLOOD ORDERABLES F inal Result Performing Organization Address [facility]/ZIP Co de Phone Number [facility] [address] [place] [address], [place] [phone] * CBC auto differential (02/16/2025 8:04 AM EDT) [facility] WBC 7.5 4.8 - 10.8 K/mcL LAB HEMETOLOGY METHOD 02/16/2025 10:18 AM [facility] RBC 5.50 4.50 - 5.50 M/mcL LAB HEMETOLOGY METHOD 02/16/2025 10:18 AM [facility] Hemoglobin 17.0 13.5 - 17.5 g/dL LAB HEMETOLOGY METHOD 02/16/2025 10:18 AM [facility] Hematocrit 49.3 42.0 - 54.0 % LAB HEMETOLOGY METHOD 02/16/2025 10:18 AM [facility] MCV 90.5 79.0 - 98.0 FL LAB HEMETOLOGY METHOD 02/16/2025 10:18 AM [facility] MCH 31.2 27.0 - 32.0 pcg LAB HEMETOLOGY METHOD 02/16/2025 10:18 AM [facility] MCHC 34.5 32.0 - 37.0 g/dL LAB HEMETOLOGY METHOD 02/16/2025 10:18 AM [facility] RDW 11.9 11.0 - 15.0 % LAB HEMETOLOGY METHOD 02/16/2025 10:18 AM [facility] Platelets 267 130 - 400 K/mcL LAB HEMETOLOGY METHOD 02/16/2025 10:18 AM [facility] MPV 10.1 7.0 - 11.0 FL LAB HEMETOLOGY METHOD 02/16/2025 10:18 AM [facility] NRBC 0.0 <1.0 % LAB HEMETOLOGY METHOD 02/16/2025 10:18 AM [facility] NRBC Absolute 0.00 <0.10 K/mcL LAB HEMETOLOGY METHOD 02/16/2025 10:18 AM [facility] Neutrophils Relative 56.1 % LAB HEMETOLOGY METHOD 02/16/2025 10:18 AM [facility] Lymphocytes Relative 30.1 % LAB HEMETOLOGY METHOD 02/16/2025 10:18 AM [facility] Monocytes Relative 10.5 % LAB HEMETOLOGY METHOD 02/16/2025 10:18 AM [facility] Eosinophils Relative 2.5 % LAB HEMETOLOGY METHOD 02/16/2025 10:18 AM [facility] Basophils Relative 0.5 % LAB HEMETOLOGY METHOD 02/16/2025 10:18 AM [facility] Immature Granulocytes Relative 0.3 % LAB HEMETOLOGY METHOD 02/16/2025 10:18 AM [facility] Neutrophils Absolute 4.22 1.50 - 7.00 K/mcL LAB HEMETOLOGY METHOD 02/16/2025 10:18 AM [facility] Lymphocytes Absolute 2.26 1.00 - 5.00 K/mcL LAB HEMETOLOGY METHOD 02/16/2025 10:18 AM [facility] Monocytes Absolute 0.79 0.20 - 1.00 K/mcL LAB HEMETOLOGY METHOD 02/16/2025 10:18 AM [facility] Eosinophils Absolute 0.19 0.00 - 0.50 K/mcL LAB HEMETOLOGY METHOD 02/16/2025 10:18 AM [facility] Basophils Absolute 0.04 0.00 - 0.20 K/mcL LAB HEMETOLOGY METHOD 02/16/2025 10:18 AM [facility] Immature Granulocytes Absolute 0.02 0.00 - 0.03 K/mcL LAB HEMETOLOGY METHOD 02/16/2025 10:18 AM [facility] Blood Venous blood specimen / Unknown Venipuncture / Unknown 02/16/2025 8:04 AM EDT 02/16/2025 8:04 AM EDT us Abelardo Mckeon MD LAB BLOOD ORDERABLES F inal Result Performing Organization Address [facility]/ZIP Co de Phone Number [facility] [address] [place] [address], * Hepatitis B surface antibody (02/16/2025 8:04 AM EDT) Hepatitis B Surface Ab Negative Negative LAB CHEMISTRY METHOD 02/16/2025 11:23 AM EDT [facility] Hepatitis B Surface Ab Quantitative <3.1 mIU/mL LAB CHEMISTRY METHOD 02/16/2025 11:23 AM EDT [facility] Blood Venous blood specimen / Unknown Venipuncture / Unknown 02/16/2025 8:04 AM EDT 02/16/2025 8:04 AM EDT Narrative [facility] - 02/16/2025 11:23 AM EDT >=10 mIU/mL is considered to be consistent with immunity. us Abelardo Mckeon MD LAB BLOOD ORDERABLES F inal Result Performing Organization Address [facility] Co de Phone Number [facility] [address] [place] [address], [place] [phone] * Hemoglobin A1c (02/16/2025 8:04 AM EDT) Hemoglobin A1C 5.4 <6.5 % LAB CHEMISTRY METHOD 02/16/2025 2:12 PM EDT [facility] Mean Bld Glu Estim. 108 mg/dL LAB CHEMISTRY METHOD 02/16/2025 2:12 PM EDT [facility] Blood Venous blood specimen / Unknown Venipuncture / Unknown 02/16/2025 8:04 AM EDT 02/16/2025 8:04 AM EDT us Abelardo Mckeon MD LAB BLOOD ORDERABLES F inal Result [facility] [address] [place] [address], * (ABNORMAL) Comprehensive metabolic panel (02/16/2025 8:04 AM EDT) Sodium 137 133 - 145 mmol/L LAB CHEMISTRY METHOD 02/16/2025 10:43 AM [facility] Potassium 4.3 3.5 - 5.5 mmol/L LAB CHEMISTRY METHOD 02/16/2025 10:43 AM [facility] Chloride 105 96 - 110 mmol/L LAB CHEMISTRY METHOD 02/16/2025 10:43 AM [facility] CO2 26 21 - 32 mmol/L LAB CHEMISTRY METHOD 02/16/2025 10:43 AM [facility] Anion Gap 6 3 - 11 LAB CHEMISTRY METHOD 02/16/2025 10:43 AM [facility] Glucose 96 70 - 100 mg/dL LAB CHEMISTRY METHOD 02/16/2025 10:43 AM [facility] BUN 16 5 - 25 mg/dL LAB CHEMISTRY METHOD 02/16/2025 10:43 AM [facility] Creatinine 0.92 0.70 - 1.30 mg/dL LAB CHEMISTRY METHOD 02/16/2025 10:43 AM [facility] eGFR 98 >=60 mL/min/1. 73m2 LAB CHEMISTRY METHOD 02/16/2025 10:43 AM [facility] Comment:Calculation based on the Chronic Kidney Disease Epidemiology Collaboration (CKD-EPI) equation refit without adjustment for race. BUN/Creatinine Ratio 17.4 LAB CHEMISTRY METHOD 02/16/2025 10:43 AM [facility] Calcium 9.1 8.5 - 10.5 mg/dL LAB CHEMISTRY METHOD 02/16/2025 10:43 AM [facility] AST (SGOT) 28 10 - 42 unit/L LAB CHEMISTRY METHOD 02/16/2025 10:43 AM [facility] ALT (SGPT) 79(H) 10 - 60 unit/L LAB CHEMISTRY METHOD 02/16/2025 10:43 AM [facility] Alkaline Phosphatase 73 42 - 121 unit/L LAB CHEMISTRY METHOD 02/16/2025 10:43 AM [facility] Total Protein 7.1 6.0 - 8.0 g/dL LAB CHEMISTRY METHOD 02/16/2025 10:43 AM [facility] Albumin 3.7 3.2 - 5.0 g/dL LAB CHEMISTRY METHOD 02/16/2025 10:43 AM [facility] Total Bilirubin 0.4 0.0 - 1.4 mg/dL LAB CHEMISTRY METHOD 02/16/2025 10:43 AM [facility] Blood Venous blood specimen / Unknown Venipuncture / Unknown 02/16/2025 8:04 AM EDT 02/16/2025 8:04 AM EDT Abelardo Mckeon MD LAB BLOOD ORDERABLES F inal Result [facility] [address] [place] [address], [place] [phone] * External Vascular Ultrasound (12/16/2024) Only the most recent of2 resultswithin the time period is included. Anatomical Region Laterality Modality Ultrasound us Provider [facility] CV VASCULAR PROCEDURES F inal Result from Last 3 Months Insurance [facility] Care Teams School Bus Driver/Teacher Assistant Relationship Specialty Start Date End Date Abelardo Mckeon MD [address] [place], [place] PCP - General Internal Medicine 07/17/24
--- OUTSIDE RECORDS SUMMARY | 2025-02-18 09:41 | XMS_ITS | Encounter Summary ---
Author Organization [facility] Address [address] [place] [address] Care Team Providers Care Tank Systems Maintainer Name Role Phone Abelardo Mckeon MD Primary Care Provider Encounter Details Date Type Department Care Team (Late st Contact Info) Description 02/16/2025 Results Follow-Up Adult Medicine [facility] [address] [place], [place] [phone] Abelardo Mckeon MD [address] [place], [place] Social History Tobacco Use Types Packs/Day Years Used Date Smoking Tobacco: Never Passive Smoke Exposure: Never Smokeless Tobacco: Never Alcohol Use Standard Drinks/Week Comments Not Currently [...] care for your loved ones. For example, early childhood worker or elderly care for an older adult? [...] on file documented as of this encounter Plan of Treatment Upcoming Encounters Date Type Department Care Team (Late st Contact Info) Description 03/30/2025 11:00 AM EST Office Visit Adult Medicine [facility] [address] [place], [place] [phone] Stella Will PA [address] [place], [place] documented as of this encounter Visit Diagnoses Not on filedocumented in this encounter Additional Health Concerns Assessment Noted Time PHQ-9 Depression Total Score: 0 02/14/20 8:33 AM EDT documented as of this encounter Care Teams Tank Systems Maintainer Relationship Specialty Start Date End Date Abelardo Mckeon MD [address] [place] [address] PCP - General Internal Medicine 07/17/24 documented as of this encounter
== END 2025-02-17 09:02 | disposition home or self-care (01) ==
LOC: HO.HOSX 09:01
PROVIDERS: Visit Provider Physician Assistant
DX: Z13.89 Encounter for screening for other disorder (principal)

== ENCOUNTER 2025-03-03 13:57 | Outpatient (REF) | payer OTHER, SELFPAY ==
--- NOTE | ~2025-03-03 | XR_ITS ---
EXAMINATION: XR KNEE, LEFT CLINICAL INFORMATION: M25.569 - Pain in unspecified knee COMPARISON: None available. TECHNIQUE: AP standing bilateral and lateral views of the left knee. FINDINGS: There is moderate narrowing of the medial joint space and mild narrowing of the lateral. Patellofemoral joint space is preserved. There are small marginal osteophytes involving the lateral patella and medial trochlea. Intercondylar tubercles are peaked. XR/XR knee LT 2V IMPRESSION: Moderate degenerative changes Electronically signed by: Indra Monreal MD 03/03/2025 02:54 PM EDT
== END 2025-03-03 13:58 | disposition home or self-care (01) ==
LOC: HO.HOSX 13:57
PROVIDERS: PCP Internal Medicine; Visit Provider Physician Assistant
DX: S83.8X9A Sprain of other specified parts of unspecified knee, initial encounter (principal); M17.12 Unilateral primary osteoarthritis, left knee
CPT/HCPCS: 20610; 73560; 99202; J0665; J1100; J2003

== ENCOUNTER 2025-03-03 13:57 | Outpatient (AMB) | payer OTHER, SELFPAY ==
--- NOTE | 2025-03-03 14:01 | MHC.OFFVIS ---
Intake Visit Reasons: ED f/u-Lt knee strain Intake Note: Oj is a 54 year old male who presents today for a evaluation of his left knee pain. Patient reports ongoing pain for about 2 months ambulating down the stairs, he stepped a certain way and rotated his body but his foot remained facing forward, resulted in a sharp pain. He notice that his pain is on the posterior aspect of the knee. Patient states that his pain is worse when he is walking, bending and going up and down the stairs. He is utilizing a cane from someone else due to ambulation and prolonged standing causing increased pain and instability. Prolonged sitting causing cramping and tension on the posterior aspect of the left knee as well. He has tried Tylenol, meloxicam and ibuprofen with very minimal pain, once he starts ambulating again the pain is consistent. Numbness and tingling as well if he is seated for a prolonged time. 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 Patient reports ongoing pain for about 2 months ambulating down the stairs, he stepped a certain way and rotated his body but his foot remained facing forward, resulted in a sharp pain. He notice that his pain is on the posterior aspect of the knee. Patient states that his pain is worse when he is walking, bending and going up and down the stairs. He is utilizing a cane from someone else due to ambulation and prolonged standing causing increased pain and instability. Prolonged sitting causing cramping and tension on the posterior aspect of the left knee as well. He has tried Tylenol, meloxicam and ibuprofen with very minimal pain, once he starts ambulating again the pain is consistent. Numbness and tingling as well if he is seated for a prolonged time. PFSH Social History Alcohol intake: never Patient Tobacco Use Status: Never used Tobacco Current occupational status: retired Review of Systems Const All systems reviewed & are unremarkable except as noted in HPI and below Physical Exam Const General: cooperative, healthy appearing and no acute distress Resp Effort & Inspection: normal respiratory effort and able to speak in complete sentences Extrem Other: Left knee: Normal to inspection. No ecchymosis, erythema, or joint effusion. Significant tenderness along the medial joint line. Full knee extension and flexion. Positive Byron's at the medial joint line. NVI. Psych Appearance: grossly normal Mental Status: mental status grossly normal Attitude: cooperative Office Procedures AMB Joint Injection/Aspiration Joint Injection/Aspiration Primary Site: left knee Prep: site was prepped using aseptic technique, ethochloride spray was applied and injection warnings given Injected: 40 mg of, with 3 mL of, 1% plain lidocaine, 0.25% bupivacaine, in the joint and decadron Approach Used: anterolateral Procedure: The patient tolerated the procedure well, but had some pain with the injection and there was some relief with the local anesthesia Coding 03924 - Large joint Procedure code (CPT) selection complete Assessment & Plan Assessment & Plan (1) Acute medial meniscal injury of knee: Code(s): S83.8X9A - Sprain of other specified parts of unspecified knee, initial encounter Category: Medical (2) Osteoarthritis of left knee: Code(s): M17.12 - Unilateral primary osteoarthritis, left knee Category: Medical Plan Oj is a 54 year old male who presents today for a evaluation of his left knee pain. Patient reports ongoing pain for about 2 months ambulating down the stairs, he stepped a certain way and rotated his body but his foot remained facing forward, resulted in a sharp pain. He notice that his pain is on the posterior aspect of the knee. Patient states that his pain is worse when he is walking, bending and going up and down the stairs. He is utilizing a cane from someone else due to ambulation and prolonged standing causing increased pain and instability. Prolonged sitting causing cramping and tension on the posterior aspect of the left knee as well. He has tried Tylenol, meloxicam and ibuprofen with very minimal pain, once he starts ambulating again the pain is consistent. Numbness and tingling as well if he is seated for a prolonged time. The patient was offered a cortisone injection in the left knee. The patient was explained the risks, benefits, and alternatives to receiving this injection. After receiving consent for the injection, the patient had the procedure done while in the office today. The patient tolerated the procedure well with no complications. Additionally, I have recommended an MRI to further evaluate the integrity of the knee and surrounding structures. Patient is exhibiting signs of an acute medial meniscal injury. Follow-up will be after the MRIs obtained, or sooner if needed X-rays of the left knee which were obtained while in the office today and were reviewed by me, Simona Vital PA-C, revealed no acute fracture or dislocation. Orders: Orders XR knee LT 2V Today M25.569 - Pain in unspecified knee Coding Level of Care Code New Pt Level 3 (04730) Diagnoses Acute medial meniscal injury of knee S83.8X9A Osteoarthritis of left knee M17.12 CPT Codes Coding - 03568 Large joint: 32406 - Large joint ([id number])
--- OUTSIDE RECORDS SUMMARY | 2025-03-03 16:56 | XMS_ITS | Clinical Summary ---
Author Organization [facility] [address] [place] [address] [place] [address] Phone Care Team Providers Care Vp Security Name Role Phone Abelardo Mckeon MD Primary [...] Team Description 02/16/2025 Results Follow-Up Adult Medicine [address] [phone] Abelardo Mckeon MD 02/13/2025 9:00 AM EDT Office Visit Adult Medicine [address] [phone] Abelardo Mckeon MD Adult general medical examination [...] for your loved ones. For example, child welfare assistant or elderly care for an older adult? [...] 11:00 AM EST Office Visit Adult Medicine [facility] [address] [place], [place] [phone] Stella Will PA [address] [place], [place] Health Maintenance Due Date Last Done Comments Colorectal Cancer Screening: Colonoscopy 1969 Hepatitis B Vaccines (1 of 3 - 19+ 3-dose series) 1988 RSV Immunization Adult Patie nts (1 - Risk 50-74 years 1-dose series) 2019 Zoster Vaccines (1 of 2) 2019 COVID-19 Vaccine (1 - 2023-2 5 season) 2025 Social Influencers of Health Screening 02/13/2026 02/13/2025 Cholesterol Screening (Lipid Panel) 02/16/2030 02/16/2025 DTaP,Tdap,and Td Vaccines (2 - Td or Tdap) 02/13/2035 02/13/2025 Depression Screening Completed 02/13/2025 Influenza Vaccine Completed [...] LAB CHEMISTRY METHOD 02/16/2025 11:22 AM EDT [facility] Blood Venous blood specimen / Unknown Venipuncture / Unknown 02/16/2025 8:04 AM EDT 02/16/2025 8:04 AM EDT Narrative [facility] - 02/16/2025 11:22 AM EDT The Siemens Advia Centaur Chemiluminescent Immunoassay is used. Results obtained with different assay methods or kits cannot be used interchangeably. Results cannot be interpreted as absolute evidence of the presence or absence of malignant disease. us Abelardo Mckeon MD LAB BLOOD ORDERABLES F inal Result Performing Organization Address City/[facility]/ZIP Co de Phone Number [facility] [address] [place] [address], [place] [phone] * Hepatitis C antibody (02/16/2025 8:04 AM EDT) Hepatitis C Antibody Negative Negative LAB CHEMISTRY METHOD 02/16/2025 12:02 PM EDT [facility] Blood Venous blood specimen / Unknown Venipuncture / Unknown 02/16/2025 8:04 AM EDT 02/16/2025 8:04 AM EDT us Abelardo Mckeon MD LAB BLOOD ORDERABLES F inal Result Performing Organization Address City/[facility]/ZIP Co de Phone Number [facility] [address] [place] [address], [place] [phone] * HIV 1,2 antibody, p24 antigen with reflex to differentiation (02/16/2025 8:04 AM EDT) HIV Combo AB/AG Negative Negative LAB CHEMISTRY METHOD 02/16/2025 12:02 PM EDT [facility] Blood Venous blood specimen / Unknown Venipuncture / Unknown 02/16/2025 8:04 AM EDT 02/16/2025 8:04 AM EDT Narrative [facility] - 02/16/2025 12:02 PM [...] ORDERABLES F inal Result Performing Organization Address City/[facility]/ZIP Co de Phone Number [facility] [address] [place] [address], [place] [phone] * (ABNORMAL) Lipid panel with reflex to direct LDL (02/16/2025 8:04 AM EDT) Cholesterol 171 0 - 200 mg/dL LAB CHEMISTRY METHOD 02/16/2025 10:43 AM EDT [facility] Triglycerides 90 0 - 150 mg/dL LAB CHEMISTRY METHOD 02/16/2025 10:43 AM EDT [facility] HDL 48 >=40 mg/dL LAB CHEMISTRY METHOD 02/16/2025 10:43 AM [facility] LDL Calculated 105(H) 0 - 100 mg/dL LAB CHEMISTRY METHOD 02/16/2025 10:43 AM EDT [facility] Comment:Estimated LDL Calcul ated using equation: Total cholesterol - HDL cholesterol - (Triglycerides/5) VLDL Cholesterol Óscar 18 mg/dL LAB CHEMISTRY METHOD 02/16/2025 10:43 AM EDT [facility] Non HDL Chol. (LDL+VLDL) 123 <145 mg/dL LAB CHEMISTRY METHOD 02/16/2025 10:43 AM [facility] Chol/HDL Ratio 3.6 0.0 - 4.4 LAB CHEMISTRY METHOD 02/16/2025 10:43 AM T [facility] Blood Venous blood specimen / Unknown Venipuncture / Unknown 02/16/2025 8:04 AM EDT 02/16/2025 8:04 AM EDT Abelardo Mckeon MD LAB BLOOD ORDERABLES F inal Result Performing Organization Address [facility]/ZIP Co de Phone Number [facility] [address] [place] [address], [place] [phone] * CBC auto differential (02/16/2025 8:04 AM EDT) [facility] WBC 7.5 4.8 - 10.8 K/mcL LAB HEMETOLOGY METHOD 02/16/2025 10:18 AM [facility] RBC 5.50 4.50 - 5.50 M/mcL LAB HEMETOLOGY METHOD 02/16/2025 10:18 AM [facility] Hemoglobin 17.0 13.5 - 17.5 g/dL LAB HEMETOLOGY METHOD 02/16/2025 10:18 AM [facility] Hematocrit 49.3 42.0 - 54.0 % LAB HEMETOLOGY METHOD 02/16/2025 10:18 AM [facility] MCV 90.5 79.0 - 98.0 FL LAB HEMETOLOGY METHOD 02/16/2025 10:18 AM [facility] MCH 31.2 27.0 - 32.0 pcg LAB HEMETOLOGY METHOD 02/16/2025 10:18 AM [facility] MCHC 34.5 32.0 - 37.0 g/dL LAB HEMETOLOGY METHOD 02/16/2025 10:18 AM [facility] RDW 11.9 11.0 - 15.0 % LAB HEMETOLOGY METHOD 02/16/2025 10:18 AM [facility] Platelets 267 130 - 400 K/mcL LAB HEMETOLOGY METHOD 02/16/2025 10:18 AM [facility] MPV 10.1 7.0 - 11.0 FL LAB HEMETOLOGY METHOD 02/16/2025 10:18 AM [facility] NRBC 0.0 <1.0 % LAB HEMETOLOGY METHOD 02/16/2025 10:18 AM [facility] NRBC Absolute 0.00 <0.10 K/mcL LAB HEMETOLOGY METHOD 02/16/2025 10:18 AM [facility] Neutrophils Relative 56.1 % LAB HEMETOLOGY METHOD 02/16/2025 10:18 AM [facility] Lymphocytes Relative 30.1 % LAB HEMETOLOGY METHOD 02/16/2025 10:18 AM [facility] Monocytes Relative 10.5 % LAB HEMETOLOGY METHOD 02/16/2025 10:18 AM [facility] Eosinophils Relative 2.5 % LAB HEMETOLOGY METHOD 02/16/2025 10:18 AM [facility] Basophils Relative 0.5 % LAB HEMETOLOGY METHOD 02/16/2025 10:18 AM [facility] Immature Granulocytes Relative 0.3 % LAB HEMETOLOGY METHOD 02/16/2025 10:18 AM [facility] Neutrophils Absolute 4.22 1.50 - 7.00 K/mcL LAB HEMETOLOGY METHOD 02/16/2025 10:18 AM [facility] Lymphocytes Absolute 2.26 1.00 - 5.00 K/mcL LAB HEMETOLOGY METHOD 02/16/2025 10:18 AM [facility] Monocytes Absolute 0.79 0.20 - 1.00 K/mcL LAB HEMETOLOGY METHOD 02/16/2025 10:18 AM [facility] Eosinophils Absolute 0.19 0.00 - 0.50 K/mcL LAB HEMETOLOGY METHOD 02/16/2025 10:18 AM [facility] Basophils Absolute 0.04 0.00 - 0.20 K/mcL LAB HEMETOLOGY METHOD 02/16/2025 10:18 AM [facility] Immature Granulocytes Absolute 0.02 0.00 - 0.03 K/mcL LAB HEMETOLOGY METHOD 02/16/2025 10:18 AM [facility] Blood Venous blood specimen / Unknown Venipuncture / Unknown 02/16/2025 8:04 AM EDT 02/16/2025 8:04 AM EDT us Abelardo Mckeon MD LAB BLOOD ORDERABLES F inal Result Performing Organization Address [facility]/ZIP Co de Phone Number [facility] [address] [place] [address], [place] [phone] * Hepatitis B surface antibody (02/16/2025 8:04 AM EDT) Hepatitis B Surface Ab Negative Negative LAB CHEMISTRY METHOD 02/16/2025 11:23 AM EDT [facility] Hepatitis B Surface Ab Quantitative <3.1 mIU/mL LAB CHEMISTRY METHOD 02/16/2025 11:23 AM EDT [facility] Blood Venous blood specimen / Unknown Venipuncture / Unknown 02/16/2025 8:04 AM EDT 02/16/2025 8:04 AM EDT Narrative [facility] - 02/16/2025 11:23 AM EDT >=10 mIU/mL is considered to be consistent with immunity. us Abelardo Mckeon MD LAB BLOOD ORDERABLES F inal Result Performing Organization Address City/[facility] Co de Phone Number [facility] [address] [place] [address], [place] [phone] * Hemoglobin A1c (02/16/2025 8:04 AM EDT) Pathologist [facility] Hemoglobin A1C 5.4 <6.5 % LAB CHEMISTRY METHOD 02/16/2025 2:12 PM EDT [facility] Mean Bld Glu Estim. 108 mg/dL LAB CHEMISTRY METHOD 02/16/2025 2:12 PM EDT [facility] Blood Venous blood specimen / Unknown Venipuncture / Unknown 02/16/2025 8:04 AM EDT 02/16/2025 8:04 AM EDT Abelardo Mckeon MD LAB BLOOD ORDERABLES F inal Result [facility] [address] [place] [address], [place] [phone] * (ABNORMAL) Comprehensive metabolic panel (02/16/2025 8:04 AM EDT) Sodium 137 133 - 145 mmol/L LAB CHEMISTRY METHOD 02/16/2025 10:43 AM [facility] Potassium 4.3 3.5 - 5.5 mmol/L LAB CHEMISTRY METHOD 02/16/2025 10:43 AM [facility] Chloride 105 96 - 110 mmol/L LAB CHEMISTRY METHOD 02/16/2025 10:43 AM [facility] CO2 26 21 - 32 mmol/L LAB CHEMISTRY METHOD 02/16/2025 10:43 AM [facility] Anion Gap 6 3 - 11 LAB CHEMISTRY METHOD 02/16/2025 10:43 AM [facility] Glucose 96 70 - 100 mg/dL LAB CHEMISTRY METHOD 02/16/2025 10:43 AM [facility] BUN 16 5 - 25 mg/dL LAB CHEMISTRY METHOD 02/16/2025 10:43 AM [facility] Creatinine 0.92 0.70 - 1.30 mg/dL LAB CHEMISTRY METHOD 02/16/2025 10:43 AM [facility] eGFR 98 >=60 mL/min/1. 73m2 LAB CHEMISTRY METHOD 02/16/2025 10:43 AM [facility] Comment:Calculation based on the Chronic Kidney Disease Epidemiology Collaboration (CKD-EPI) equation refit without adjustment for race. BUN/Creatinine Ratio 17.4 LAB CHEMISTRY METHOD 02/16/2025 10:43 AM [facility] Calcium 9.1 8.5 - 10.5 mg/dL LAB CHEMISTRY METHOD 02/16/2025 10:43 AM [facility] AST (SGOT) 28 10 - 42 unit/L LAB CHEMISTRY METHOD 02/16/2025 10:43 AM [facility] ALT (SGPT) 79(H) 10 - 60 unit/L LAB CHEMISTRY METHOD 02/16/2025 10:43 AM [facility] Alkaline Phosphatase 73 42 - 121 unit/L LAB CHEMISTRY METHOD 02/16/2025 10:43 AM [facility] Total Protein 7.1 6.0 - 8.0 g/dL LAB CHEMISTRY METHOD 02/16/2025 10:43 AM [facility] Albumin 3.7 3.2 - 5.0 g/dL LAB CHEMISTRY METHOD 02/16/2025 10:43 AM [facility] Total Bilirubin 0.4 0.0 - 1.4 mg/dL LAB CHEMISTRY METHOD 02/16/2025 10:43 AM [facility] Blood Venous blood specimen / Unknown Venipuncture / Unknown 02/16/2025 8:04 AM EDT 02/16/2025 8:04 AM EDT us Abelardo Mckeon MD LAB BLOOD ORDERABLES F inal Result [facility] [address] [place] [address], [place] [phone] * External Vascular Ultrasound (12/16/2024) Only the most recent of2 resultswithin the time period is included. Anatomical Region Laterality Modality Ultrasound us Provider [facility] CV VASCULAR PROCEDURES F inal Result from Last 3 Months Insurance [facility] Care Teams Vp Security Relationship Specialty Start Date End Date Abelardo Mckeon MD [address] [place] [address] PCP - General Internal Medicine 07/17/24
--- OUTSIDE RECORDS SUMMARY | 2025-03-03 16:56 | XMS_ITS | Encounter Summary ---
Author Organization [facility] Address [address] [place] [address] Care Team Providers Care Appliance Line Assembler Name Role Phone Abelardo Mckeon MD Primary Care Provider Encounter Details Date Type Department Care Team (Late st Contact Info) Description 02/16/2025 Results Follow-Up Adult Medicine [facility] [address] [place], [place] [phone] Abelardo Mckeon MD [address] [place], [place] Social History Tobacco Use Types Packs/Day [...] for your loved ones. For example, director of child welfare services or elderly care for an older adult? [...] 11:00 AM EST Office Visit Adult Medicine [facility] [address] [place], [place] [phone] Stella Will PA [address] [place], [place] documented as of this encounter Visit Diagnoses Not on filedocumented in this encounter Additional Health Concerns Assessment Noted Time PHQ-9 Depression Total Score: 0 02/14/20 8:33 AM EDT documented as of this encounter Care Teams Appliance Line Assembler Relationship Specialty Start Date End Date Abelardo Mckeon MD [address] [place] [address] PCP - General Internal Medicine 07/17/24 documented as of this encounter
== END 2025-03-03 14:40 | disposition home or self-care (01) ==
LOC: HO.HOS 13:58
PROVIDERS: PCP Internal Medicine; Visit Provider Physician Assistant
DX: S83.8X2A Sprain of other specified parts of left knee, initial encounter (principal); M17.12 Unilateral primary osteoarthritis, left knee
CPT/HCPCS: 20610; 99203

== ENCOUNTER → 2025-03-03 14:09 | Outpatient (BNV) | payer OTHER, SELFPAY | PROVIDERS: PCP Internal Medicine; Visit Provider Radiology Diagnostic Radiology | DX: M25.562 Pain in left knee (principal) | CPT/HCPCS: 73560 ==

== ENCOUNTER 2025-05-13 09:00 | Outpatient (RCR) | payer OTHER, SELFPAY ==
--- NOTE | 2025-04-20 09:36 | MHC.PT.EP ---
[facility] [place] Office [place] Office [place] Office [address] Girma Andrade [address] [phone] F: [phone] F: [phone] F: [phone] F: [phone] Physical Therapy Plan of Care Date of Evaluation: 04/20/25 Date of Surgery: n/a Diagnosis: acute medial meniscal injury L knee Assessment: Patient is a 54 year old male presenting to PT with complaints of pain in his L knee. Pt reports onset of pain began September 2024 due to twisting injury. He presents today with impairments in pain, knee ROM, knee strength, hip strength, gait mechanics. Pt's current occupation is retired, with baseline physical activities including ambulating, standing, stair negotiation, ADLs. Pt expresses skilled nursing goal of reducing pain, and is motivated to work towards this in PT. Clinical presentation today is most consistent with signs and sx associated with L knee pain and pt will benefit from skilled PT 2 week x 4 weeks to address the following problems and impairments noted upon evaluation: pain, knee ROM, knee strength, hip strength, gait mechanics. These problems limit the patient with the following functional activities: ambulating, standing, stair negotiation, ADLs. The prescribed treatment plan of care is medically necessary. Co-morbidities of HTN were identified and taken into considerations of plan of care. Pt was educated on HEP, role of PT, prognosis, POC. Frequency and Duration: The patient will be seen 2 x week x 4 weeks Short Term Goals: Pt will demonstrate symmetrical L knee ROM to R in 2 weeks. Pt will demonstrate improved L knee MMT strength by 1/3 grade in 2 weeks. Pt will demonstrate improved hip MMT strength by 1/3 grade in 2 weeks. Client Delivery Manager Goals: Pt will demonstrate improved LEFI score by 9 points in 4 weeks for improved functional mobility. Pt will demonstrate ability to ambulate with min to no pain in 4 weeks for return to PLOF. Pt will demonstrate ability to complete ADLs with min to no pain in 4 weeks for return to PLOF. Treatment Plan: Modalities to reduce pain, spasms and effusion. Manual therapy to restore motion and function. Therapeutic exercise to improve strength and flexibility. Neuromuscular re-education for posture and balance. Therapeutic activities to return to functional activities of daily living. Electronically signed by: Eboni Jaimes, PT, DPT, ATC Please sign and return to therapist. Thank you for your referral.
--- NOTE | 2025-05-18 07:21 | MHC.PT.DC ---
[facility] [place] Office [place] Office [place] Office [address] Girma Andrade [address] [phone] F: [phone] F: [phone] F: [phone] F: [phone] Physical Therapy Discharge Report Diagnosis: acute medial meniscal injury L knee Date of Surgery: n/a Date of Evaluation: 04/20/25 Date of Discharge: 05/18/25 Treatments to Date: 8 Cancellations to Date: 0 No Shows to Date: 0 Discharge Status: Independent with HEP Discharge Summary: Pt saw EVENTS ASSISTANT for final visit. Per EVENTS ASSISTANT note pt is independent in his HEP and ready for d/c. He should follow up with his provider with any ongoing pain. Electronically signed by: Eboni Jaimes, PT, DPT, ATC Please sign and return to therapist. Thank you for your referral.
== END 2025-05-18 07:21 | disposition home or self-care (01) ==
LOC: HO.PTCHIC 09:00
PROVIDERS: PCP Internal Medicine; Visit Provider Physician Assistant
DX: S83.8X2D Sprain of other specified parts of left knee, subsequent encounter (principal)
CPT/HCPCS: 97110; 97161